=== PATIENT | female | born 1935 | race Caucasian/White ===

== ENCOUNTER 2017-10-10 10:59 | Emergency (ER) | payer MEDICARE, OTHER ==
[~2017-10-10] VITALS: Ht 162.6 cm; Wt 75.3 kg
[~2017-10-10 10:59] MED LIST: ASPIRIN EC81 MG PO; ATIVAN1 MG PO; CARBAMAZEPINE200 MG PO; DIFLUCAN200 MG PO; DIGOXIN250 MCG PO; FERGON240 MG PO; GABAPENTIN300 MG PO; GLUCOPHAGE XR750 MG PO; IPRAT-ALBUT 0.5-3 ML INH; IRON PO; LANTUS100 UNITS/ SUB-Q; LEVOTHYROXINE75 MCG PO; LUTEIN20 MG PO; NEURONTIN300 MG PO; OXCARBAZEPINE300 MG PO; OXYCARBAZEPINE; PERICOLACE PO; PROMETHAZINE HC25 M1 PR; SERTRALINE HCL100 MG PO; SIMVASTATIN PO; STRESS FORMULA1 EAC5 PO; TEGRETOL200 MG PO; TRAZODONE HCL150 MG PO; VISION PLUS LU1 EACH PO; VITAMIN C WIT1000 MG PO; VITAMIN C1000 M1 PO; VITAMIN D32000 UNIT PO; ZITHROMAX250 MG PO; ZYRTEC10 MG PO
[2017-10-10] MEDS ORDERED: KEFLEX500 MG PO (12:39)
== END 2017-10-10 13:01 | disposition home or self-care (01) ==
LOC: ED 10:59
DX: L03.116 Cellulitis of left lower limb (principal); E11.9 Type 2 diabetes mellitus without complications; Z87.891 Personal history of nicotine dependence; Z88.0 Allergy status to penicillin; Z88.8 Allergy status to other drugs, medicaments and biological substances; Z91.041 Radiographic dye allergy status; Z79.82 Long term (current) use of aspirin; Z79.899 Other long term (current) drug therapy; Z79.4 Long term (current) use of insulin
CPT/HCPCS: 93971; 99283

== ENCOUNTER 2018-05-16 06:20 | Day surgery (SDC) | payer MEDICARE, OTHER ==
[~2018-05-16] VITALS: Ht 162.6 cm; Wt 70.8 kg
[~2018-05-16 06:20] MED LIST changes: +KEFLEX500 MG PO
--- NOTE | 2018-05-16 09:03 | NUR ---
05/16/18 0902 Espinoza,Skye 0859 PT ARRIVED TO PACU ON RA, RESP EVEN AND UNLABORED. PT ASLEEP OFF AND ON, PT DENIES NAUSEA AND PAIN. PT REORINTED TO PACU.
--- NOTE | 2018-05-16 10:31 | NUR ---
PT RESTING IN BED-ALERT AND ORIENTED. RATHER QUIET AND SUBDUED BUT PLEASANT. EXPLAINED WHAT SHE COULD EXPECT FOR THE DAY,PT REQUESTED PRAYER. WILL FOLLOW NEEDED
--- NOTE | 2018-05-17 07:55 | OR ---
[facility] [address], [place] [address] Signed DATE OF OPERATION: 05/16/2018 SURGEON: Jayla Herbert MD PREOPERATIVE DIAGNOSES: 1. Recurrent iron deficiency anemia. 2. Moderate to large hiatal hernia. 3. History of gastritis. 4. Diverticulosis. 5. External hemorrhoids. POSTOPERATIVE DIAGNOSES: 1. Moderate to large hiatal hernia (38-44 cm). 2. Mild diffuse gastritis. 3. Moderate pandiverticulosis. 4. Minimal to moderate internal and external hemorrhoids. 5. 4 mm polyp at 62 cm. PROCEDURES: 1. EGD without biopsy. 2. Colonoscopy with hot biopsy. ESTIMATED BLOOD LOSS: None. 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 She has a long history of iron deficiency anemia. She normally takes iron pills and it normally correct itself iron pills. However, it has not on this occasion. She had her last upper and lower endoscopy back in June 2006. We know she has the above-mentioned diagnoses from her endoscopies. However, the GE junction remains intact and she really does not have much in the way of acid reflux symptoms. Her last CLOtest was negative for H. pylori. We had asked Samia back in 2006 to follow up in 10 years for repeat endoscopy. However, she has been a little resistant to that given her age and so forth. However, she has had several friends of cancer and then her iron deficiency anemia returned. After thinking about this for some time, she decided she wanted to come and repeat the upper and lower endoscopy. In the office, we reviewed this in great detail. I gave her pamphlets on upper and lower endoscopy. She understands she is at higher risk mainly for perforation as her age increases. Otherwise, she understands the other risks including, but not limited to gas bloating, Electronically Signed By: JAYLA HERBERT MD 05/17/18 [facility] PATIENT NAME: SAMIA WARREN OPERATIVE REPORT DATE OF : 35 REPORT #: [id number] PHYSICIAN: JAYAL HERBERT MD PCP: GAVIN ROMERO DO REPORT IS CONFIDENTIAL AND NOT TO BE RELEASED WITHOUT AUTHORIZATION [facility] [address], [place] [address] Signed crampy abdominal pain, bleeding, perforation, requiring surgery, and missed diagnosis. She had done well with Versed and fentanyl in the past. She has expressed understanding and would like to proceed. PROCEDURE NOTE: Samia was taken into our endoscopy suite and placed in the supine semi-recumbent position. The posterior oropharynx was anesthetized with Hurricaine spray. A bite block was utilized for the case. She was given a preoperative antibiotic because of her hip replacement. She was given a total of 5 mg of Versed and 100 mcg of fentanyl to cover both cases. A digital rectal exam was performed and sure enough she does have the minimal to moderate circumferential external hemorrhoids. She had good sphincter tone. The adult colonoscope was introduced and advanced under direct visualization of camera all the way up into the cecum itself. Her prep was excellent. It took a little extra sedation and abdominal compression in order to advance the scope. Her prep was quite good. The scope was slowly withdrawn. She does have diverticula throughout the colon. They were minimal to moderate size, minimal to moderate in number, and scattered about. We did remove a small polyp at 62 cm. It was achieved quite easily with hot biopsy forceps. The rectum itself was unremarkable. Upon retroflexion of the scope, she does have some tiny internal hemorrhoid columns. It looks like she may have a circumferential scar from a previous PPH hemorrhoidopexy. I would have to check on that back at the office. After this, the gas was suctioned out and the colonoscope removed. Samia tolerated procedure quite well. Samia was placed in a supine semi-recumbent position. She was maintained on IV sedation with the Versed and fentanyl. The adult gastroscope was introduced and advanced out into the third portion of the duodenum under direct visualization of the camera without difficulty. The duodenum and pyloric channel were unremarkable. The entire stomach showed very minimal mild erythematous changes consistent with mild gastritis. Consequently, we took no additional biopsies on this occasion. There were no ulcerations. Upon retroflexion of scope, we could easily see her hiatal hernia. It measured out from 44 cm back to 38 cm, maybe a little bit longer. Consequently, it is moderate to slightly large in size. We looked carefully. We saw no evidence of any Ciro ulcerations or Vania-Valadez tears. The inside of hiatal hernia was quite unremarkable. Her GE junction remains relatively intact, very minimal disruption. Certainly, no distal esophagitis. No Miller's mucosa. The middle and upper esophagus were unremarkable. After this, the gas had been suctioned out and the gastroscope removed. Samia tolerated the procedure quite well. RECOMMENDATIONS: I will see Samia back in my office in 7 to 14 days to review her results. Electronically Signed By: JAYLA HERBERT MD 05/17/18 0755 PATIENT NAME: SAMIA WARREN OPERATIVE REPORT DATE OF : 35 REPORT #: [id number] PHYSICIAN: JAYLA HERBERT MD PCP: GAVIN ROMERO DO REPORT IS CONFIDENTIAL AND NOT TO BE RELEASED WITHOUT AUTHORIZATION [address] [place] [address] Signed Jayla Herbert MD ALB/MODL /[id number] cc: DO Jayla Mcnulty MD Copies: GAVIN ROMERO ANDREW L MD ~ Electronically Signed By: JAYLA HERBERT MD 05/17/18 0755 PATIENT NAME: SAMIA WARREN OPERATIVE REPORT DATE OF : 35 REPORT #: [id number] PHYSICIAN: JAYLA HERBERT MD PCP: GAVIN ROMERO DO REPORT IS CONFIDENTIAL AND NOT TO BE RELEASED WITHOUT AUTHORIZATION
== END 2018-05-16 09:57 | disposition home or self-care (01) ==
LOC: DS 06:20
PROVIDERS: Colon & Rectal Surgery
PROC: 0DBE8ZZ Excision of Large Intestine, Via Natural or Artificial Opening Endoscopic (ICD-10-PCS; principal; 2018-05-16 06:45)
PROC: 0DJ08ZZ Inspection of Upper Intestinal Tract, Via Natural or Artificial Opening Endoscopic (ICD-10-PCS; 2018-05-16 06:45)
DX: D12.6 Benign neoplasm of colon, unspecified (principal); D50.9 Iron deficiency anemia, unspecified; K29.70 Gastritis, unspecified, without bleeding; K44.9 Diaphragmatic hernia without obstruction or gangrene; K57.30 Diverticulosis of large intestine without perforation or abscess without bleeding; K64.4 Residual hemorrhoidal skin tags; K64.8 Other hemorrhoids; E78.5 Hyperlipidemia, unspecified; E03.9 Hypothyroidism, unspecified; E11.9 Type 2 diabetes mellitus without complications; F32.9 Major depressive disorder, single episode, unspecified; F41.9 Anxiety disorder, unspecified; M19.90 Unspecified osteoarthritis, unspecified site; Z88.8 Allergy status to other drugs, medicaments and biological substances; Z91.041 Radiographic dye allergy status; Z88.0 Allergy status to penicillin; Z91.048 Other nonmedicinal substance allergy status; Z79.899 Other long term (current) drug therapy; Z79.82 Long term (current) use of aspirin; Z79.4 Long term (current) use of insulin; Z87.891 Personal history of nicotine dependence
CPT/HCPCS: 88305; 99153; G0500; J2250; J3010; J7120

== ENCOUNTER 2021-09-25 13:37 | Emergency (ER) | payer MEDICARE, OTHER ==
[~2021-09-25] VITALS: Ht 162.6 cm; Wt 70.8 kg
[~2021-09-25 13:37] MED LIST changes: +B12 ACTIVE1000 MCG PO; +LIPITOR20 MG PO
--- OUTSIDE RECORDS SUMMARY | 2021-09-25 13:44 | XMS ---
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 Cyrus has no Care Guidelines for this patient. [facility] MO.) [facility] NOTE: Visits indicate total known visits. ED/C VISIT TRACKING (12 MO.) [facility] [place] [facility] COMPLAINT: - FLU SYMPTOMS 09/16/2021 01:[address] [facility] 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
== END 2021-09-25 16:08 | disposition home or self-care (01) ==
LOC: ED 13:37
DX: U07.1 COVID-19 (principal); R53.81 Other malaise; E11.9 Type 2 diabetes mellitus without complications; Z88.0 Allergy status to penicillin; Z91.048 Other nonmedicinal substance allergy status; Z91.09 Other allergy status, other than to drugs and biological substances; Z79.899 Other long term (current) drug therapy; Z79.4 Long term (current) use of insulin
CPT/HCPCS: 36415; 80053; 80162; 85025; 99283

== ENCOUNTER 2021-11-19 16:06 | Emergency (ER) | payer MEDICARE, OTHER ==
[~2021-11-19] VITALS: Ht 162.6 cm; Wt 66.7 kg
[2021-11-19] MEDS ORDERED: HYDROCODON-ACE1 EA10 PO (19:09)
== END 2021-11-19 19:24 | disposition home or self-care (01) ==
LOC: ED 16:06
DX: M54.6 Pain in thoracic spine (principal); E11.9 Type 2 diabetes mellitus without complications; Z87.891 Personal history of nicotine dependence; Z88.0 Allergy status to penicillin; Z91.048 Other nonmedicinal substance allergy status; Z88.8 Allergy status to other drugs, medicaments and biological substances; Z79.4 Long term (current) use of insulin; Z79.899 Other long term (current) drug therapy
CPT/HCPCS: 20552; 36415; 71046; 80048; 85025; 85651; 86140; 99283-25; J3301

== ENCOUNTER 2022-05-13 10:36 | Emergency (ER) | payer MEDICARE, OTHER ==
[~2022-05-13] VITALS: Ht 162.6 cm; Wt 66.7 kg
[~2022-05-13 10:36] MED LIST changes: +HYDROCODON-ACE1 EA10 PO
--- OUTSIDE RECORDS SUMMARY | 2022-05-13 10:38 | XMS ---
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 ESam VISIT COUNT (12 MO.) 4 [facility] TOTAL 4 NOTE: Visits indicate total known visits. 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
== END 2022-05-13 15:45 | disposition home or self-care (01) ==
LOC: ED 10:36
DX: B34.9 Viral infection, unspecified (principal); E11.9 Type 2 diabetes mellitus without complications; Z20.822 Contact with and (suspected) exposure to COVID-19; Z87.891 Personal history of nicotine dependence; Z91.041 Radiographic dye allergy status; Z91.048 Other nonmedicinal substance allergy status; Z88.0 Allergy status to penicillin; Z88.8 Allergy status to other drugs, medicaments and biological substances; Z79.899 Other long term (current) drug therapy; Z79.4 Long term (current) use of insulin; Z79.82 Long term (current) use of aspirin
CPT/HCPCS: 36415; 51701; 71045; 74176; 80053; 81003; 84484; 85025; 87502; 99285-25; A9270; C9803; J7040; U0003

== ENCOUNTER 2024-04-11 21:47 | Emergency (ER) | payer MEDICARE, OTHER ==
[~2024-04-11] VITALS: Ht 162.6 cm; Wt 70.3 kg
--- OUTSIDE RECORDS SUMMARY | ~2024-04-11 | XMS | Continuity of Care Document ---
Demographics + + + | Address | [address] | | | [place] [address] | + + + | Preferred Language | Unknown | + + + | Marital Status | Unknown | + + + | Restorationist Affiliation | Unknown | + + + | Race | White | + + + | Ethnic Group | Not or | + + + Author + + + | Author | [facility] | + + + | Organization | [facility] | + + + | Address | [address] | | | [place] [address] | + + + | Phone | | + + + Care Team Providers + + + + | Care Aluminum Boats Assembler Name | Role | Phone | + + + + Unavailable | Unavailable | + + + + Allergies No information. Encounters No information. Functional Status No information. Immunizations No information. Medications No information. 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 Results/Labs No information. Social History +--------+ + + | date | description | facility | +--------+ + + Vital Signs No information."
[~2024-04-11 21:47] MED LIST changes: +AMIODARONE HCL200 MG PO; +ATORVASTATIN CA40 MG PO; +DOXYCYCLINE HY100 MG PO; +GABAPENTIN100 MG PO; +LANTUS SOL100 UNIT/1 SUB-Q; +LASIX40 MG PO; +LEVOTHYROXINE25 MCG PO; +OCUVITE EYE +1 EACH PO; +OMEPRAZOLE20 MG PO; +OXYCODONE HCL5 MG PO; +POTASSIUM CHLO20 ME1 PO; +VERAPAMIL ER120 M1 PO; +VERAPAMIL HCL80 MG PO; -VISION PLUS LU1 EACH PO
[2024-04-11] MEDS ORDERED: LEVODOPA/CARBIDOPA 10/100 1 EA TAB PO ONE (23:30)
[2024-04-11] MEDS ORDERED: SINEMET 10-1001 EACH PO (23:35)
[2024-04-12 00:03] VITALS: BP 143/70
== END 2024-04-11 23:50 | disposition home or self-care (01) ==
LOC: ED 21:47
DX: S00.03XA Contusion of scalp, initial encounter (principal); S83.91XA Sprain of unspecified site of right knee, initial encounter; E11.9 Type 2 diabetes mellitus without complications; Z87.891 Personal history of nicotine dependence; Z88.0 Allergy status to penicillin; Z88.8 Allergy status to other drugs, medicaments and biological substances; Z91.041 Radiographic dye allergy status; Z91.048 Other nonmedicinal substance allergy status; Z79.890 Hormone replacement therapy; Z79.4 Long term (current) use of insulin; Z79.899 Other long term (current) drug therapy; W01.0XXA Fall on same level from slipping, tripping and stumbling without subsequent striking against object, initial encounter
CPT/HCPCS: 70450; 72125; 73560; 99284-25

== ENCOUNTER 2024-08-19 15:21 | Inpatient (IN) | payer MEDICARE, OTHER ==
[~2024-08-19] VITALS: Ht 160 cm; Wt 74.3 kg
[~2024-08-19 15:21] MED LIST changes: +SINEMET 10-1001 EACH PO; -VITAMIN D32000 UNIT PO; +VITAMIN D350 MCG PO
[2024-08-19] MEDS ORDERED: OXYCODONE HCL5 MG PO (15:41)
[2024-08-19 15:47] LABS: BASOPHILS 0.8 % (0-2); EOSINOPHILS 0.4 % (0-6); HEMATOCRIT 32.6 % (35.0-50.0); LYMPHOCYTES 7.5 % (24-44); MCH 28.5 (27-36); MCHC 33.8 g/dl (30-36); MCV 84.3 fl (81-99); MONOCYTES 9.4 % (0-12); NEUTROPHILS 81.9 % (39-80); PLATELET COUNT 214 K/uL (140-440); RBC 3.87 M/ul (4.3-5.7); RDW 17.4 (10.5-15.0)
[2024-08-19 15:59] LABS: INR 1.08 (0.80-1.30); PROTIME 13.4 Sec (11.2-14.2)
[2024-08-19] MEDS ORDERED: ACETAMINOPHEN 325 MG TAB PO ONE (16:00)
[2024-08-19] MEDS ORDERED: SODIUM CHLORIDE 0.9% 1,000 ML IV PRN (16:00)
[2024-08-19 16:03] LABS: CORONAVIRUS COVID-19 AG POSITIVE (NEGATIVE); INFLUENZA A AG NEGATIVE (NEGATIVE); INFLUENZA B AG NEGATIVE (NEGATIVE)
[2024-08-19 16:10] LABS: LACTIC ACID, BLOOD 1.3 mmol/L (0.4-2.0)
[2024-08-19 16:17] LABS: ALBUMIN 3.6 g/dL (3.4-5.0); ALBUMIN/GLOBULIN RATIO 0.82 (1.1-2.4); ANION GAP 8.1 (7-21); BILIRUBIN, TOTAL 0.7 mg/dL (0.2-1.0); BUN/CREATININE RATIO 16.78 (6.0-28.6); CREATININE, SERUM 1.43 mg/dL (0.55-1.02); POTASSIUM 4.1 mmol/L (3.5-5.1)
[2024-08-19] MEDS ORDERED: FUROSEMIDE 40 MG/4 ML VIAL IV ONE (16:30)
[2024-08-19] MEDS ORDERED: DEXAMETHASONE SOD PHOS 10 MG/ML VIAL IV SCH (17:45)
[2024-08-19] MEDS ORDERED: REMDESIVIR 200 MG in SODIUM CHLORIDE 0.9% 210 ML IV ONE (17:45)
[2024-08-19] MEDS ORDERED: DEXTROSE 50% 50 ML SYR IV PRN ×2 (18:00)
[2024-08-19] MEDS ORDERED: IBLOOD GLUCOSE TEST STRIP 1 EA TEST XX PRN (18:00)
[2024-08-19] MEDS ORDERED: GLUCAGON,HUMAN RECOMBINANT 1 MG/ML VIAL SUB-Q PRN (18:00)
[2024-08-19] MEDS ORDERED: DEXTROSE 5% 1,000 ML IV PRN (18:00)
[2024-08-19] MEDS ORDERED: ACETAMINOPHEN 325 MG TAB PO PRN (18:00)
[2024-08-19] MEDS ORDERED: ondansetron HCL 4 MG/2 ML VIAL IV PRN (18:00)
[2024-08-19 18:02] LABS: BILIRUBIN, URINE NEGATIVE (negative); BLOOD/HGB, URINE TRACE-I (Negative); KETONE, URINE NEGATIVE (Negative); LEUK ESTERASE, URINE SMALL (negative); NITRITE, URINE POSITIVE (negative)
[2024-08-19 18:07] LABS: EPITHELIAL CELLS, URINE SQUAMOUS 1+ /lpf (0-1+)
[2024-08-19 18:08] LABS: BACTERIA, URINE 3+ /hpf (negative); CASTS, URINE NONE SEEN \\lpf; COLLECTION TYPE, URINE CLEAN CATCH; CRYSTALS, URINE NONE SEEN (0-1+); REFLEX CULTURE, URINE Yes (No)
--- NOTE | 2024-08-19 18:15 | NUR ---
RECIEVED REPORT FROM ALAINA HAM. PT MOVED FROM STRETCHER TO MEDSURG BED WITH SLIDE SHEET. PT DENIES PAIN AT THIS TIME. VSS. PT ON 2L O2 VIA NC. O2 SATURATION 99%, O2 VIA NC WEANED TO 1L, 96%. RT TO THE BEDSIDE. REDNESS FOUND IN MARIO AREA AND UNDER MD YOLETTE PLACES ORDERS. FAMILY AT THE BEDSIDE. PT DENIES SOB AT THIS TIME. PT DENIES NAUSEA AT THIS TIME. PT REQUESTS JELLO AND WATER, GIVEN. PT AND FAMILY STATE NO FURTHER NEEDS AT THIS TIME, CALL LIGHT WITHIN REACH.
[2024-08-19 18:28] VITALS: BP 14/51
--- NOTE | 2024-08-19 19:46 | NUR ---
REPORT RECEIVED FROM DAY SHIFT RN. PT RESTING IN BED. SAFETY PRECAUTIONS MAINTAINED. CALL LIGHT WITHIN REACH. WILL CONTINUE TO MONITOR.
[2024-08-19 20:11] VITALS: BP 111/57
[2024-08-19 20:17] VITALS: BP 111/57
[2024-08-19] MEDS ORDERED: TRAZODONE HCL 100 MG TAB PO SCH (21:00)
[2024-08-19] MEDS ORDERED: SERTRALINE HCL 100 MG TAB PO SCH (21:00)
[2024-08-19] MEDS ORDERED: GABAPENTIN 100 MG CAP PO SCH (21:00)
[2024-08-19] MEDS ORDERED: IBLOOD GLUCOSE TEST STRIP 1 EA TEST XX SCH (21:00)
[2024-08-19] MEDS ORDERED: INSULIN LISPRO 100 UNIT/ML ML SUB-Q SCH (21:00)
[2024-08-19] MEDS ORDERED: NYSTATIN CREAM 30 GM TUBE TOP SCH (21:00)
[2024-08-19] MEDS ORDERED: INSULIN GLARGINE-YFGN 100 UNIT/ML ML SUB-Q SCH (21:00)
--- NOTE | 2024-08-19 21:25 | NUR ---
PT ASSESSED AND MEDICATIONS GIVEN. ADMISSION COMPLATED WITH PT AT BEDSIDE. VSS. PT ON 1L NC, SATING WELL. PT ON DROPLET ISOLATION PER ORDERS DUE TO POSITIVE COVID TEST. PT STATES THAT THEY ARE TIRED BUT DENIES ANY DISTRESS AT THIS TIME. BS 128, NO INSULIN NEEDED. PUREWICK IN PLACE DUE TO WEAKNESS. SAFETY PRECAUTIONS MAINTAINED. CALL LIGHT WITHIN REACH. WILL CONTINUE TO MONITOR.
[2024-08-20 00:31] VITALS: BP 103/57
--- NOTE | 2024-08-20 00:33 | NUR ---
PT USING BEDSIDE COMMODE. FULL LINEN CHANGE. CALL LIGHT WITHIN REACH.
[2024-08-20 05:32] VITALS: BP 143/61
[2024-08-20 05:34] LABS: BASOPHILS 0.4 % (0-2); EOSINOPHILS 0.1 % (0-6); HEMATOCRIT 30.3 % (35.0-50.0); HEMOGLOBIN 10.3 g/dL (12.0-18.0); LYMPHOCYTES 9.8 % (24-44); MCH 28.7 (27-36); MCHC 33.9 g/dl (30-36); MCV 84.6 fl (81-99); MONOCYTES 6.1 % (0-12); NEUTROPHILS 83.6 % (39-80); PLATELET COUNT 176 K/uL (140-440); RBC 3.58 M/ul (4.3-5.7); RDW 17.1 (10.5-15.0)
[2024-08-20 05:53] LABS: ALBUMIN 2.9 g/dL (3.4-5.0); ALBUMIN/GLOBULIN RATIO 0.69 (1.1-2.4); ANION GAP 8.7 (7-21); BILIRUBIN, TOTAL 0.5 mg/dL (0.2-1.0); BUN/CREATININE RATIO 17.39 (6.0-28.6); CALCIUM 8.5 mg/dL (8.5-10.1); CREATININE, SERUM 1.38 mg/dL (0.55-1.02); POTASSIUM 3.7 mmol/L (3.5-5.1); PROTEIN, TOTAL 7.1 g/dL (6.4-8.2)
[2024-08-20] MEDS ORDERED: LEVOTHYROXINE SODIUM 25 MCG TAB PO SCH (06:00)
--- NOTE | 2024-08-20 06:18 | NUR ---
PT RESTED WELL DURING THE SHIFT. PT CONTINUES TO BE ON 1L NC, SATING WELL. NO DISTRESS NOTED. REST OF VSS. PT DID NOT HAVE ANY FEVERS THROUGHOUT SHIFT. PT SWEATED A LOT, 2 BED CHANGES DONE DUE TO EXCESS SWEATING. PT UP SBA TO BSC, GOOD OUTPUT NOTED. DROPLET PRECAUTIONS MAINTAINED. SAFETY PRECAUTIONS MAINTAINED. CALL LIGHT WITHIN REACH. WILL CONTINUE TO MONITOR.
--- NOTE | 2024-08-20 07:30 | NUR ---
REPORT RECEIVED FROM ALAINA YANEZ. PT SITTING UP IN BED ASLEEP. CALL LAP ON BED.
--- NOTE | 2024-08-20 08:09 | NUR ---
IN TO TAKE PATIENT HER BREAKFAST. PATIENT REFUSED TO GET UP TO CHAIR AT THIS TIME. SAT PATIENT UP RIGHT IN BED. CALL LIGHT IN REACH. NO FURTHER NEEDS AT THIS TIME.
[2024-08-20] MEDS ORDERED: ENOXAPARIN SODIUM 30 MG/0.3 ML SYR SUB-Q SCH (09:00)
[2024-08-20] MEDS ORDERED: PANTOPRAZOLE SODIUM 40 MG TABEC PO SCH (09:00)
[2024-08-20] MEDS ORDERED: REMDESIVIR 100 MG in SODIUM CHLORIDE 0.9% 230 ML IV SCH (09:00)
[2024-08-20] MEDS ORDERED: GABAPENTIN 100 MG CAP PO SCH (09:00)
--- NOTE | 2024-08-20 09:26 | NUR ---
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
--- NOTE | 2024-08-20 09:40 | NUR ---
PT OFF FLOOR WITH XRAY.
--- NOTE | 2024-08-20 10:02 | NUR ---
PT BACK FROM XRAY AND HOOKED UP TO REMDESIVIR IV. SON IN ROOM. DENIES CONCERNS ATT.
[2024-08-20] MEDS ORDERED: GABAPENTIN300 MG PO (10:55)
--- NOTE | 2024-08-20 10:58 | NUR ---
INTO SEE PATIENT. PERSONAL HEALTH INFORMATION REVIEWED WITH PATIENT AND SON. PATIENT LIVES WITH SON IN HOUSE. 7 STEPS INTO HOME AND HAS A HANDLE BAR TO USE. USES WALKER AT BASELINE. DENIES ANY NEEDS FOR OXYGEN OR CPAP. DRIVES WHEN SHE FEELS GOOD BUT FAMILY DRIVES MOST OF THE TIME. DENIES ANY PROBLEMS PAYING UTLITIES OR OBTAINING FOOD. DENIES ANY CM NEEDS AT THIS TIME.
--- NOTE | 2024-08-20 11:02 | NUR ---
PT UP TO RESTROOM 1PFWW.
[2024-08-20 11:10] VITALS: BP 106/57
--- NOTE | 2024-08-20 11:10 | NUR ---
IN ROOM TO ASSIST PT OUT OF BR. PT AMBULATED WITH FWW FROM BR TO CHAIR; FRESH ICE WATER AND A WARM BLANKET BROUGHT. CALL LIGHT IN REACH, DENIES FURTHER NEEDS AT THIS TIME.
[2024-08-20 11:23] VITALS: BP 106/57
--- NOTE | 2024-08-20 11:23 | NUR ---
PATIENT SITTING UP IN CHAIR AT THIS TIME. FAMILY IN ROOM. LINENS CHANGED. CALL LIGHT IN REACH. NO FURTHER NEEDS AT THIS TIME.
[2024-08-20] MEDS ORDERED: PHARMACY RENAL DOSE ADJUSTMENT 1 DOSE MISC PO SCH (12:00)
--- NOTE | 2024-08-20 12:35 | NUR ---
MED REC COMPLETE
[2024-08-20] MEDS ORDERED: GABAPENTIN100 MG PO (12:50)
[2024-08-20] MEDS ORDERED: ANTIFUNGAL CRE141 GM TOP (12:54)
--- NOTE | 2024-08-20 13:18 | NUR ---
IN ROOM WITH ALAINA DUVAL TO ADMINISTER INSULIN. ADMINISTERED 1 UNIT TO UPPER R ARM. PT TOLERATED WELL. CLEARED LUNCH TRAY. REMOVED PT'S IV FOR D/C. CATHETER INTACT. PT AWAITING D/C PAPERWORK AT THIS TIME. CALL LIGHT WITHIN REACH, NO FURTHER NEEDS.
[2024-08-20 14:06] VITALS: BP 111/54
== END 2024-08-20 13:55 | disposition home or self-care (01) | DRG 177 ==
LOC: ED 15:21 → MS 17:35
PROVIDERS: Emergency Medicine; ADMIT Student in an Organized Health Care Education/Training Program; ATTEND Student in an Organized Health Care Education/Training Program
PROC: 3E0333Z Introduction of Anti-inflammatory into Peripheral Vein, Percutaneous Approach (ICD-10-PCS; principal; 2024-08-19)
DX: U07.1 COVID-19 (principal); J96.01 Acute respiratory failure with hypoxia; I50.32 Chronic diastolic (congestive) heart failure; E11.42 Type 2 diabetes mellitus with diabetic polyneuropathy; K21.9 Gastro-esophageal reflux disease without esophagitis; I27.20 Pulmonary hypertension, unspecified; I11.0 Hypertensive heart disease with heart failure; G47.00 Insomnia, unspecified; F39 Unspecified mood [affective] disorder; E78.5 Hyperlipidemia, unspecified; G89.29 Other chronic pain; K44.9 Diaphragmatic hernia without obstruction or gangrene; M19.90 Unspecified osteoarthritis, unspecified site; Z96.641 Presence of right artificial hip joint; E89.0 Postprocedural hypothyroidism; Z99.81 Dependence on supplemental oxygen; I95.2 Hypotension due to drugs; T46.1X5 Adverse effect of calcium-channel blockers; Z91.041 Radiographic dye allergy status; Z88.0 Allergy status to penicillin; Z88.8 Allergy status to other drugs, medicaments and biological substances; Z91.048 Other nonmedicinal substance allergy status; Z87.891 Personal history of nicotine dependence; Z90.710 Acquired absence of both cervix and uterus; Z90.49 Acquired absence of other specified parts of digestive tract; Z98.890 Other specified postprocedural states; Z79.891 Long term (current) use of opiate analgesic; Z79.899 Other long term (current) drug therapy; Z79.890 Hormone replacement therapy; Z79.4 Long term (current) use of insulin
CPT/HCPCS: 36415; 71045; 71046; 80053; 81001; 83605; 83735; 83880; 85025; 85610; 86140; 87040; 87088; 94762; 94799; 96374; 97161; 97165; 99285-25; A9270; J0248; J1100; J1650; J1815; J1938; J7030; J7050

== ENCOUNTER 2024-11-21 11:40 | Emergency (ER) | payer OTHER, MEDICARE ==
[~2024-11-21] VITALS: Ht 160 cm; Wt 74.7 kg
--- OUTSIDE RECORDS SUMMARY | ~2024-11-21 | XMS | Continuity of Care Document ---
Demographics + + + | Address | [address] | | | [place] [address] | + + + | Preferred Language | Unknown | + + + | Marital Status | Unknown | + + + | Mandaeism Affiliation | Unknown | + + + | Race | White | + + + | Ethnic Group | Not or | + + + Author + + + | Author | [facility] | + + + | Organization | [facility] | + + + | Address | [address] | | | [place] [address] | + + + | Phone | | + + + Care Team Providers + + + + | Care Bolt Header Name | Role | Phone | + + + + Unavailable | Unavailable | + + + + Allergies No information. Encounters No information. Functional Status No information. Immunizations No information. Medications No information. 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 | | | | claudication | | + + + + | 2024-09-04 13:22:23 | Spinal stenosis, lumbar | [facility] | | | region with neurogenic | | | | claudication | | + + + + | 2024-09-05 01:04:14 | Sepsis, unspecified | [facility] | | | organism (CMS/HCC V24, | | | | CMS/HCC V28) | | + + + + | 2024-09-05 01:04:14 | Pneumonia, unspecified | [facility] | | | organism | | + + + + | 2024-09-05 01:04:14 | Hypoxemia | [facility] | + + + + | 2024-09-07 15:01:48 | Sepsis, unspecified | [facility] | | | organism (CMS/HCC V24, | | | | CMS/HCC V28) | | + + + + | 2024-09-07 15:01:48 | Pneumonia, unspecified | [facility] | | | organism | | + + + + | 2024-09-07 15:01:48 | Shortness of breath | [facility] | + + + + | 2024-09-07 15:01:48 | Hypoxemia | [facility] | + + + + | 2024-09-19 14:30:22 | Spinal stenosis, lumbar | [facility] | | | region with neurogenic | | | | claudication | | + + + + | 2024-10-18 22:27 | Spinal stenosis, lumbar | [facility] | | | region with neurogenic | | | | claudication | | + + + + Procedures No information. Results/Labs No information. Social History +--------+ + + | date | description | facility | +--------+ + + Vital Signs No information."
[~2024-11-21 11:40] MED LIST changes: +ANTIFUNGAL CRE141 GM TOP
[2024-11-21 12:17] LABS: BLOOD/HGB, URINE TRACE-I (Negative); KETONE, URINE NEGATIVE (Negative); LEUK ESTERASE, URINE LARGE (negative); NITRITE, URINE POSITIVE (negative)
[2024-11-21 12:17] LABS: BASOPHILS 0.7 % (0.1-1.2); EOSINOPHILS 2.1 % (0.7-5.8); LYMPHOCYTES 10.5 % (19.3-51.7); MCH 27.9 PG (25.6-32.2); MCHC 31.4 g/dL (32.2-35.5); MCV 88.9 fL (79.4-94.8); MONOCYTES 4.9 % (4.7-12.5); NEUTROPHILS 81.2 % (34.0-71.1); RBC 3.80 M/uL (3.93-5.22)
[2024-11-21 12:25] LABS: BACTERIA, URINE 1+ /hpf (negative); CASTS, URINE NONE SEEN \\lpf; CRYSTALS, URINE NONE SEEN (0-1+); EPITHELIAL CELLS, URINE SQUAMOUS 1+ /lpf (0-1+); REFLEX CULTURE, URINE Yes (No)
[2024-11-21 12:37] LABS: ALT (SGPT) 38.0 U/L (14-59); AST (SGOT) 25.0 U/L (15-37); GLOMERULAR FILTRATION RATE,EST 34.0 mL/min (>60); PROTEIN, TOTAL 7.4 g/dL (6.4-8.2); UREA NITROGEN 22.0 mg/dL (7-18)
[2024-11-21] MEDS ORDERED: CIPROFLOXACIN/DEXTROSE 400 MG/200 ML PIGGYBACK IV ONE (12:45)
[2024-11-21] MEDS ORDERED: SODIUM CHLORIDE 0.9% 1,000 ML IV PRN (12:45)
[2024-11-21] MEDS ORDERED: CEFDINIR300 MG PO (12:53)
[2024-11-21 15:06] VITALS: BP 141/58
--- NOTE | 2024-11-21 15:25 | EKG ---
[facility] [address] [place] [address] Signed Sinus bradycardia Left anterior fascicular block Prolonged QT Abnormal ECG When compared with ECG of 16-FEB-2024 06:47, Left anterior fascicular block is now present Nonspecific T wave abnormality no longer evident in Lateral leads QT has lengthened Confirmed by Cora Hernandez MD ([id number]) on 11/21/2024 3:25:40 PM Electronically Signed By: CORA HERNANDEZ MD 11/21/24 1525 PATIENT NAME: SNOW WARREN Electrocardiogram DATE OF : 35 PHYSICIAN: CORA HERNANDEZ MD REPORT #: [id number] REPORT IS CONFIDENTIAL AND NOT TO BE RELEASED WITHOUT AUTHORIZATION
== END 2024-11-21 15:06 | disposition home or self-care (01) ==
LOC: ED 11:40
PROVIDERS: Emergency Medicine
DX: S73.101A Unspecified sprain of right hip, initial encounter (principal); E86.0 Dehydration; N39.0 Urinary tract infection, site not specified; E11.9 Type 2 diabetes mellitus without complications; W01.0XXA Fall on same level from slipping, tripping and stumbling without subsequent striking against object, initial encounter; Z79.4 Long term (current) use of insulin; Z79.899 Other long term (current) drug therapy; Z88.0 Allergy status to penicillin; Z91.018 Allergy to other foods; Z91.048 Other nonmedicinal substance allergy status; Z88.8 Allergy status to other drugs, medicaments and biological substances; Z87.891 Personal history of nicotine dependence
CPT/HCPCS: 36415; 72170; 73502; 73552; 80053; 81001; 85025; 87088; 93005; 93010; 96365; 99284-25; J0696; J7030

== ENCOUNTER 2024-12-30 07:05 | Emergency (ER) | payer MEDICARE, OTHER ==
[~2024-12-30] VITALS: Ht 160 cm; Wt 74.0 kg
[~2024-12-30 07:05] MED LIST changes: +CEFDINIR300 MG PO
[2024-12-30 07:36] LABS: BLOOD/HGB, URINE NEGATIVE (Negative); KETONE, URINE TRACE (Negative); LEUK ESTERASE, URINE MODERATE (negative); NITRITE, URINE NEGATIVE (negative)
[2024-12-30 07:42] LABS: EPITHELIAL CELLS, URINE SQUAMOUS 1+ /lpf (0-1+)
[2024-12-30 07:43] LABS: BACTERIA, URINE 1+ /hpf (negative); CASTS, URINE NONE SEEN \\lpf; CRYSTALS, URINE NONE SEEN (0-1+); REFLEX CULTURE, URINE Yes (No)
[2024-12-30] MEDS ORDERED: CEPHALEXIN MONOHYDRATE 500 MG CAP PO ONE (08:00)
[2024-12-30 09:34] VITALS: BP 108/64
[2024-12-30] MEDS ORDERED: CEPHALEXIN500 M1 PO (09:35)
== END 2024-12-30 09:55 | disposition home or self-care (01) ==
LOC: ED 07:05
PROVIDERS: Emergency Medicine
DX: N39.0 Urinary tract infection, site not specified (principal); M25.551 Pain in right hip; E11.9 Type 2 diabetes mellitus without complications; Z79.899 Other long term (current) drug therapy; Z79.4 Long term (current) use of insulin; Z91.041 Radiographic dye allergy status; Z91.048 Other nonmedicinal substance allergy status; Z88.0 Allergy status to penicillin; Z88.8 Allergy status to other drugs, medicaments and biological substances; Z87.891 Personal history of nicotine dependence
CPT/HCPCS: 51701; 73502; 81001; 87077; 87088; 87186; 99283; A9270